=== PATIENT | female | born 1955 | race Asian ===

== ENCOUNTER 2020-08-07 17:55 | Emergency (ER) | payer MEDICAID, SELFPAY ==
[~2020-08-07] VITALS: Ht 157.5 cm; Wt 59.0 kg
[2020-08-07 17:55] VITALS: BP_SYST 128
--- NOTE | 2020-08-07 17:55 | NUR ---
PT IN HALLWAY NO BEDS
--- NOTE | 2020-08-07 19:48 | NUR ---
Patient to ER bed 02 to gown for evaluation. Side rails up. Report given to RONNIE Parker
--- NOTE | 2020-08-07 19:55 | NUR ---
COVID SWAB DONE AND SENT TO LAB
--- NOTE | 2020-08-07 20:11 | NUR ---
PT COLLIN FROM HOME FOR ACUTE ONSET OF FEVER. PT DENIES COUGH, SOB. UPON ARRIVAL PT'S V/S WNL. SW PT'S SON MARIAMA @ AND PT DOES NOT HAVE A MEDICAL HX. [id number].
--- NOTE | 2020-08-07 20:32 | NUR ---
ER DR. CHAVEZ AT THE BEDSIDE EVALUATING PT
[2020-08-07] MEDS ORDERED: ASPIRIN 81 MG TAB.CHEW PO ONE (20:45)
[2020-08-07] MEDS ORDERED: NITROGLYCERIN LINGUAL 400 mCg/SPRAY SL PRN (20:45)
[2020-08-07] MEDS ORDERED: PANTOPRAZOLE SODIUM 40 MG/VIAL (PROTONIX) IVP ONE (20:45)
[2020-08-07] MEDS ORDERED: ONDANSETRON HCL 4 MG/2 ML VIAL IVP ONE (20:45)
--- NOTE | 2020-08-07 21:07 | NUR ---
PORTABLE X-RAY AT BEDSIDE
[2020-08-07 21:11] LABS: BASOPHILS % (AUTO) 0.2 % (0.0-2.0); EOSINOPHILS % (AUTO) 0.2 % (0.0-4.0); HEMATOCRIT 35.9 % (36-48); LYMPHOCYTES % (AUTO) 28.6 % (20.5-51.5); MEAN CORPUSCULAR HEMOGLOBIN 30 pg (27-31); MEAN CORPUSCULAR HGB CONC 33 % (32-36); MEAN CORPUSCULAR VOLUME 89 fL (79.0-98.0); MONOCYTES # (AUTO) 0.6 K/uL (0.0-1.0); NEUTROPHILS # (AUTO) 4.3 K/uL (1.8-7.7); PLATELET COUNT (AUTO) 202 K/uL (130-430); RED BLOOD CELL COUNT(AUTO) 4.05 MIL/uL (4.2-6.2); RED CELL DISTRIBUTION WIDTH 13.8 % (9.0-15.0); WHITE BLOOD COUNT (AUTO) 6.9 K/uL (4.8-10.8)
[2020-08-07 21:21] LABS: CALCIUM 9.1 mg/dL (8.4-11.0); CREATININE 1.11 mg/dL (0.55-1.30); POTASSIUM 5.2 mmol/L (3.5-5.1)
[2020-08-07 21:27] LABS: ALBUMIN 3.6 g/dL (3.4-4.8); TOTAL BILIRUBIN 0.8 mg/dL (0.0-1.0)
--- NOTE | 2020-08-07 21:30 | NUR ---
PT DENIES CHEST PAIN AT THIS TIME.
--- NOTE | 2020-08-07 23:30 | NUR ---
PT SLEEPING IN BED, NO S/SX OF DISTESS
[2020-08-08] MEDS ORDERED: NS 500 ML IV ONE (01:00)
[2020-08-08 01:13] LABS: BILIRUBIN,URINE NEGATIVE (NEGATIVE); BLOOD, URINE NEGATIVE (NEGATIVE); CLARITY/URINE CLEAR (CLEAR); COLOR,URINE YELLOW (YELLOW); GLUCOSE,URINE NEGATIVE (NEGATIVE); KETONES,URINE NEGATIVE (NEGATIVE); LEUKOCYTE ESTERASE ,URINE NEGATIVE (NEGATIVE); NITRITE, URINE NEGATIVE (NEGATIVE); PROTEIN URINE NEGATIVE (NEGATIVE); UROBILINOGEN,URINE 0.2 (0.2-1.0)
--- NOTE | 2020-08-08 01:49 | NUR ---
CALL TO SON FOR TRAVEL JOURNALIST UPON DC. NO ANSWER, LM
--- NOTE | 2020-08-08 02:00 | NUR ---
Patient resting quietly. No acute distress noted. Vital signs within normal range.
--- NOTE | 2020-08-08 02:30 | NUR ---
CALL TO SON FOR BELL SPINNER SOUSAPHONES UPON DC. NO ANSWER, LM
--- NOTE | 2020-08-08 03:30 | NUR ---
CALL TO SON FOR HOME ASSESSMENT NURSE UPON DC. NO ANSWER, LM
--- NOTE | 2020-08-08 04:31 | NUR ---
CALL TO SON FOR SEED YEAST OPERATOR UPON DC. NO ANSWER, LM
--- NOTE | 2020-08-08 05:45 | NUR ---
SON DUK EN ROUTE TO HOUSE DIRECTOR MOTHER
[2020-08-08 05:53] VITALS: BP_SYST 147
== END 2020-08-08 05:53 | disposition home or self-care (01) ==
LOC: SED 17:55
DX: R07.89 Other chest pain (principal); Z85.3 Personal history of malignant neoplasm of breast; Z86.19 Personal history of other infectious and parasitic diseases; Z20.828 Contact with and (suspected) exposure to other viral communicable diseases
CPT/HCPCS: 36415; 71045; 80053; 81003; 83690; 83880; 84484; 85025; 87426; 93005; 96361; 96374; 96375; 99285; C9113; J2405; J7040